=== PATIENT | female | born 1970 | race Caucasian/White ===

== ENCOUNTER 2023-10-06 20:59 | Emergency (ER) | payer MEDICAID ==
[~2023-10-06] VITALS: Ht 172.7 cm; Wt 158.8 kg
[2023-10-06] MEDS ORDERED: LIDOCAINE 5% PATCH TD ONE (21:17)
[2023-10-06] MEDS ORDERED: KETOROLAC TROMETHAMINE 30 MG INJ ONE (21:17)
[2023-10-06] MEDS ORDERED: DIAZEPAM 5 MG TABLET ONE (21:17)
[2023-10-06] MEDS ORDERED: ACETAMINOPHEN 325 MG TABLET ONE (21:17)
[2023-10-06] MEDS: KETOROLAC TROMETHAMINE 30 MG INJ IM ONE (21:23)
[2023-10-06] MEDS: DIAZEPAM 2 MG TABLET PO ONE (21:24)
[2023-10-06] MEDS: ACETAMINOPHEN 325 MG TABLET PO ONE (21:24)
[2023-10-06] MEDS: LIDOCAINE 5% PATCH TD ONE (21:25)
[2023-10-06] MEDS ORDERED: NAPR-1009 PO (22:01)
[2023-10-06] MEDS ORDERED: ACET-3102 PO (22:01)
[2023-10-06] MEDS ORDERED: DIAZ5TAB PO (22:01)
[2023-10-06] MEDS ORDERED: LIDO1ADH82 TP (22:01)
[2023-10-06 22:10] VITALS: BP 181/93; O2SAT 98
== END 2023-10-06 22:10 | disposition home or self-care (01) ==
LOC: ER 21:03
DX: M54.31 Sciatica, right side (principal); E78.5 Hyperlipidemia, unspecified; F32.A Depression, unspecified; F41.9 Anxiety disorder, unspecified; E03.9 Hypothyroidism, unspecified; F17.200 Nicotine dependence, unspecified, uncomplicated; Z79.899 Other long term (current) drug therapy
CPT/HCPCS: 99284; 82962; 72100; 73502; 96372; J1885; A4606; A4663